=== PATIENT | female | born 1945 | race Caucasian/White ===

== ENCOUNTER 2018-02-22 17:00 | Emergency (ER) | payer OTHER, BC ==
[2018-02-22 17:12] VITALS: TEMP 36.8; Ht 162.6 cm
[2018-02-22] MEDS ORDERED: MoRPHine SULFATE 2 MG/ML CARP IV STA (17:45)
[2018-02-22] MEDS ORDERED: ONDANSETRON INJ 2 MG/ML 2 ML VIAL IV STA (17:45)
--- NOTE | 2018-02-22 17:57 | DIAGNOSTIC IMAGING REPORT ---
R WRIST 2 VIEW CLINICAL HISTORY: RIGHT WRIST PAIN AFTER FALL trauma. Pain. COMPARISON: None. DISCUSSION: Comminuted fracture distal radius. Dorsal angulation. No evidence for dislocation. Distal ulna appears intact. IMPRESSION: Comminuted fracture distal radius with hairline extension to the articular surfaces 2. Dorsal angulation with no evidence for dislocation. 3. Soft tissue edema. The above report was generated using voice recognition software. It may contain grammatical, syntax or spelling errors. Electronically signed by: Moshe Jernigan M.D. 02/22/2018 5:55 PM Dictated Date/Time: 02/22/2018 5:54 PM
[2018-02-22 18:11] LABS: BASO % 0.3 %; BASO ABS # 0.02 K/uL (0-0.2); EOS % 1.4 %; EOS ABS # 0.09 K/uL (0-0.5); HEMATOCRIT 40.1 % (37-47); HEMOGLOBIN 13.3 g/dL (12.0-16.0); IG# 0.01 K/uL (0.00-0.02); LYMPH % 31.9 %; LYMPH ABS # 1.98 K/uL (1.2-3.4); MEAN CELL VOLUME 90.7 fL (80-100); MEAN CORPUSCULAR HEMOGLOBIN 30.1 pg (25-34); MEAN CORPUSCULAR HGB CONC 33.2 g/dl (32-36); MEAN PLATELET VOLUME 10.4 fL (7.4-10.4); MONO % 8.7 %; MONO ABS # 0.54 K/uL (0.11-0.59); NEUT % 57.5 %; NEUT ABS # 3.57 K/uL (1.4-6.5); PLATELET COUNT 263 K/uL (130-400); RED CELL DISTRIBUTION WIDTH CV 13.1 % (11.5-14.5); RED CELL DISTRIBUTION WIDTH SD 43.4 fL (36.4-46.3); WHITE BLOOD COUNT 6.21 K/uL (4.8-10.8)
--- NOTE | 2018-02-22 18:27 | DIAGNOSTIC IMAGING REPORT ---
R FOREARM 2 VIEWS ROUTINE CLINICAL HISTORY: R forearm/elbow pain trauma COMPARISON: None. DISCUSSION: Comminuted fracture distal radius. Dorsal angulation. No evidence for dislocation. Main osseous structures are unremarkable. There is no evidence for soft tissue swelling. IMPRESSION: Dorsally angled comminuted fracture distal radius. The above report was generated using voice recognition software. It may contain grammatical, syntax or spelling errors. Electronically signed by: Moshe Jernigan M.D. 02/22/2018 6:25 PM Dictated Date/Time: 02/22/2018 6:24 PM
--- NOTE | 2018-02-22 18:38 | EMERGENCY ROOM VISIT NOTE ---
ED Visit Note First contact with patient: 17:37 I have personally seen and evaluated the patient with the physician assistant corporation counsel. I agree with the diagnostic/management decisions and have personally been involved in these decisions and agree with the diagnosis.
[2018-02-22 18:41] LABS: BLOOD UREA NITROGEN 19 mg/dl (7-18); CALCIUM 9.6 mg/dl (8.5-10.1); CARBON DIOXIDE 28 mmol/L (21-32); CREATININE 0.96 mg/dl (0.60-1.20); GLUCOSE 82 mg/dl (70-99); POTASSIUM 3.6 mmol/L (3.5-5.1); SODIUM 137 mmol/L (136-145)
[2018-02-22] MEDS ORDERED: LIDOCAINE 1% BUFFERED INJ 20 ML VIAL INFIL ONE (18:45)
[2018-02-22] MEDS ORDERED: ONDA4TAB10 SL (20:00)
[2018-02-22] MEDS ORDERED: HYDR-5688 PO (20:00)
--- NOTE | 2018-02-22 20:10 | DIAGNOSTIC IMAGING REPORT ---
R WRIST 2 VIEWS CLINICAL HISTORY: CLOSED REDUCTION WRIST COMPARISON STUDY: Right wrist radiographs February 22, 2018. Fluoroscopy time: 19 seconds. FINDINGS: 3 fluoroscopic images of the right wrist were submitted for interpretation. Overlying cast is noted. Alignment of the comminuted distal right radial fracture has significantly improved status post reduction. Carpal bones appear grossly intact. A possible tiny bone fragment along the distal ulna is noted. IMPRESSION: Significant improvement in alignment of the distal right radial fracture status post reduction. Electronically signed by: Jonny Riley M.D. 02/22/2018 8:08 PM Dictated Date/Time: 02/22/2018 8:07 PM
[2018-02-22 20:25] VITALS: BP 124/76; PULSE 67; O2SAT 98
--- NOTE | 2018-02-22 21:46 | EMERGENCY ROOM VISIT NOTE ---
History First contact with patient: 17:37 Chief Complaint: HAND PAIN/INJURY Stated Complaint: FELL, R HAND INURY History of Present Illness The patient is a 73 year old female who presents to the Emergency Room with complaints of a right wrist deformity and pain. The patient reports that she was stepping out of her camper at the [facility] and fell forward. She tried to catch herself from falling, and experienced sudden onset of pain. She denies any head injury, neck pain or back pain. She rates her discomfort a 7 out of 10 on my exam. Review of Systems 10 system review was performed and was negative except for pertinent positives and negatives as indicated in history of present illness Past Medical/Surgical History Medical Problems: (1) No significant past medical history Surgical Problems: (1) No history of previous surgery Family History Unremarkable Social History Smoking Status: Never Smoker Alcohol Use: none Marital Status: Occupation Status: retired Current/Historical Medications Scheduled Ondasetron Odt (Zofran Odt), 4 MG SL Q6H Scheduled PRN Hydrocodone/Acetaminophen 5MG/325MG (Ceres 5MG/325MG), 1 TABLET PO Q4H PRN for Pain Physical Exam Vital Signs Date Time Temp Pulse Resp B/P (MAP) Pulse Ox O2 Delivery O2 Flow Rate FiO2 02/22/18 20:25 67 16 124/76 98 02/22/18 19:00 78 20 115/76 99 Room Air 02/22/18 17:12 36.8 78 20 133/76 99 Room Air Physical Exam CONSTITUTIONAL: Healthy and well nourished. Alert and oriented X 3 with positive affect. Patient appears in mild to moderate discomfort. HEENT: Normocephalic, atraumatic. Pupils equal, round and reactive. NECK: Full active range of motion without discomfort. RESPIRATORY: Clear to auscultation bilaterally with no wheezing, crackles, rhonchi or stridor. CARDIOVASCULAR: Regular rate and rhythm with no murmurs, rubs or gallops. MUSCULOSKELETAL: Examination of the right wrist shows an obvious deformity without any open wounds. Capillary refill of the fingers is less than 2 seconds. INTEGUMENTARY: No rash or other significant dermatologic conditions noted. NEUROLOGIC: Right hand and fingers are sensory intact. Medical Decision & Procedures ER Provider Diagnostic Interpretation: My interpretation of right wrist x-ray shows a comminuted intra-articular fracture of the distal radius with posterior angulation and displacement. Radiologist report is as follows: R WRIST 2 VIEW CLINICAL HISTORY: RIGHT WRIST PAIN AFTER FALL trauma. Pain. COMPARISON: None. DISCUSSION: Comminuted fracture distal radius. Dorsal angulation. No evidence for dislocation. Distal ulna appears intact. IMPRESSION: Comminuted fracture distal radius with hairline extension to the articular surfaces 2. Dorsal angulation with no evidence for dislocation. 3. Soft tissue edema. Laboratory Results 02/22/18 17:53 Red Blood Count 4.42, Mean Corpuscular Volume 90.7, Mean Corpuscular Hemoglobin 30.1, Mean Corpuscular Hemoglobin Concent 33.2, Mean Platelet Volume 10.4, Neutrophils (%) (Auto) 57.5, Lymphocytes (%) (Auto) 31.9, Monocytes (%) (Auto) 8.7, Eosinophils (%) (Auto) 1.4, Basophils (%) (Auto) 0.3, Neutrophils # (Auto) 3.57, Lymphocytes # (Auto) 1.98, Monocytes # (Auto) 0.54, Eosinophils # (Auto) 0.09, Basophils # (Auto) 0.02 02/22/18 17:53 Test 02/22/18 17:53 White Blood Count 6.21 K/uL (4.8-10.8) Red Blood Count 4.42 M/uL (4.2-5.4) Hemoglobin 13.3 g/dL (12.0-16.0) Hematocrit 40.1 % (37-47) Mean Corpuscular Volume 90.7 fL (80-100) Mean Corpuscular Hemoglobin 30.1 pg (25-34) Mean Corpuscular Hemoglobin Concent 33.2 g/dl (32-36) Platelet Count 263 K/uL (130-400) Mean Platelet Volume 10.4 fL (7.4-10.4) Neutrophils (%) (Auto) 57.5 % Lymphocytes (%) (Auto) 31.9 % Monocytes (%) (Auto) 8.7 % Eosinophils (%) (Auto) 1.4 % Basophils (%) (Auto) 0.3 % Neutrophils # (Auto) 3.57 K/uL (1.4-6.5) Lymphocytes # (Auto) 1.98 K/uL (1.2-3.4) Monocytes # (Auto) 0.54 K/uL (0.11-0.59) Eosinophils # (Auto) 0.09 K/uL (0-0.5) Basophils # (Auto) 0.02 K/uL (0-0.2) RDW Standard Deviation 43.4 fL (36.4-46.3) RDW Coefficient of Variation 13.1 % (11.5-14.5) Immature Granulocyte % (Auto) 0.2 % Immature Granulocyte # (Auto) 0.01 K/uL (0.00-0.02) Nucleated RBC Absolute Count (auto) 0.00 K/uL (0-0) Nucleated Red Blood Cells % 0.0 % Anion Gap 7.0 mmol/L (3-11) Estimated GFR () 68.5 Estimated GFR (Non- 59.1 BUN/Creatinine Ratio 19.8 (10-20) Calcium Level 9.6 mg/dl (8.5-10.1) Medications Administered Medications (Trade) Dose Ordered Sig/Scooter Route Start Time Stop Time Status Last Admin Dose Admin Morphine Sulfate (MoRPHine SULFATE INJ) 2 mg NOW STAT IV 02/22/18 17:45 02/22/18 17:48 DC 02/22/18 18:28 2 MG Ondansetron HCl (Zofran Inj) 4 mg NOW STAT IV 02/22/18 17:45 02/22/18 17:48 DC 02/22/18 18:27 4 MG ED Course Patient history and physical exam were performed. Nurse's notes were reviewed. Vital signs were reviewed and were normal. The patient initially refused any analgesics. X-rays of the right wrist confirms a comminuted and angulated intra -articular distal radius fracture. I explained to the patient that I would need to consult orthopedics for probable reduction. At this point, IV access was established, and the patient was administered IV morphine and Zofran for pain. I discussed the case with Dr. Dowell, ED attending physician, who examined the patient and recommended orthopedic consultation. I then spoke with Dr. Low who came to the emergency department to perform closed reduction under hematoma block. I did order baseline labs, ECG and chest x-ray as well. The fracture was reduced with adequate reduction on x-rays. Dr. Low will see the patient at the end of this week or beginning of next week. The patient was provided a prescription for Ceres and Zofran ODT as the patient reports that pain medications make her nauseated. She was encouraged to elevate the wrist for swelling. Ibuprofen for additional baseline pain relief. She was instructed to return to the emergency department as needed for worsening pain, significant swelling or other concerning symptoms. The patient was happy with plan of care, rated her pain a 2 out of 10 at the time of discharge, and voiced understanding of all discharge instructions. Medical Decision [place] Drug Monitoring Program Search Results: patient reviewed within database, no issues identified Medication Reconcilliation Current Medication List: was personally reviewed by ct Blood Pressure Screening Patient's blood pressure: Normal blood pressure Impression Primary Impression: Fracture of right distal radius Additional Impression: Fall Departure Information Prescriptions Ondasetron Odt (ZOFRAN ODT) 4 Mg Tab 4 MG SL Q6H for Nausea, #10 TAB Prov: Faisal Kidd PA 02/22/18 Hydrocodone/Acetaminophen 5MG/325MG (Ceres 5MG/325MG) Tab 1 TABLET PO Q4H Y for Pain, #15 TAB For Initial Treatment Prov: Faisal Kidd PA 02/22/18 Referrals No Doctor, Assigned (PCP) Patient Instructions [facility] Problem Qualifiers Primary Impression: Fracture of right distal radius Encounter type: initial encounter Fracture type: closed Fracture morphology : other intra-articular Qualified Codes: S52.571A - Other intraarticular fracture of lower end of right radius, initial encounter for closed fracture Additional Impression: Fall Encounter type: initial encounter Qualified Codes: W19.XXXA - Unspecified fall, initial encounter
--- NOTE | 2018-02-22 22:49 | ORTHOPEDIC CONSULTATION ---
DATE OF CONSULTATION: 02/22/2018 HISTORY OF PRESENT ILLNESS: Naomie is a 73-year-old right hand dominant female. She fell at the [facility]. She is from [place]. She injured her right wrist and was brought here by her . She has never injured her right wrist before. She does not have any tingling or numbness. She has not hurt another area of her body with this fall. PAST MEDICAL HISTORY: She has a past history of osteoporosis and ulcerative colitis. She takes Prolia and Asacol as well as Plaquenil. SURGERIES: She has had melanoma excised; tonsils and adenoids; hysterectomy. ALLERGIES: SHE HAS ALLERGIES TO SULFA AND PENICILLIN. SOCIAL HISTORY: She is retired beautician. REVIEW OF SYSTEMS: She has had other fractures including fingers and her back. PHYSICAL EXAMINATION: On examination, she has an apex volar deformity of the right distal radius. She has a faint ability to abduct her fingers, palmarly abduct her thumb and extend the thumb. She has normal sensation throughout with capillary refill less than 2 seconds and a 1+ radial pulse. The skin is closed. Tenderness is isolated to the distal radius. She has limited but painless movement of the elbow and no tenderness of the forearm or fingers. Labs are within normal limits except for a BUN of 19. CBC is okay. DIAGNOSTIC IMAGING: Radiographs of the wrist and forearm show a comminuted intraarticular fracture of the distal radius with some proximal extension. There is apex volar angulation and dorsal displacement. PROCEDURE: Verbal informed consent is obtained. Treatment options, risks and benefits were discussed. 8 mL of 1% lidocaine buffered without epinephrine were injected for hematoma block and into the distal ulna area. After adequate analgesia, closed reduction maneuver was performed. The fracture was moderately unstable and would not stay put without force. Radiographs after the reduction showed some shortening, but a good correction of the displacement and radial height. She had neutral tilting. She has been placed into a well-molded sugar tong splint. Post-reduction radiographs demonstrate neutral alignment, good radial heights, no intraarticular displacement or comminution and neutral tilting on the lateral. The distal ulna did not appear to be fractured and the DRUJ was reduced. After the reduction, she had 4/5 strength on palmar abduction of the thumb, 4/5 strength on palmar abduction of the fingers and she had 4-/5 strength on extension of the IP joint of the thumb. She could resist some resistance and gravity, but did not have full excursion or strength compared to the other side. Her sensation was normal. Capillary refill was less than 2 seconds. IMPRESSION: Osteoporosis, right distal radius fracture. PLAN: Findings discussed; options reviewed. A closed reduction is effected. She will follow up with me in my office Tuesday or Tuesday and is supplied with the contact information. If she has problems between now and then, she can call my office or come back to the Emergency Room for severe pain, swelling, fevers, tingling, numbness or other problems or questions. Elevate the arm. Wear a sling, ice it. She can wiggle her fingers. Keep the splint clean and dry. The ER will supply her with pain medication. She could also take Tylenol or an anti-inflammatory if she is able. Alignment is acceptable at this point and if that were acceptable, we may need to consider surgical options and I had informed her of that. Since she is from out of town, she can certainly follow up with her orthopedic doctor at home if she so chooses in the same timeframe. AXEL
== END 2018-02-22 20:26 | disposition home or self-care (01) ==
LOC: C.EDB 17:02 → C.EDD 20:26
DX: S52.571A Other intraarticular fracture of lower end of right radius, initial encounter for closed fracture (principal); W17.89XA Other fall from one level to another, initial encounter; Y92.833 Campsite as the place of occurrence of the external cause; Y99.8 Other external cause status

== ENCOUNTER → 2018-02-27 | Outpatient (CLI) | payer OTHER, BC ==
[~2018-02-27] MED LIST: HYDR-5688 PO; ONDA4TAB10 SL
== END | disposition home or self-care (01) ==
LOC: C.RDSM 14:15
PROVIDERS: ATTEND Physical Medicine & Rehabilitation Sports Medicine
DX: M25.531 Pain in right wrist (principal); Z88.0 Allergy status to penicillin; Z88.2 Allergy status to sulfonamides